=== PATIENT | female | born 1960 | race Caucasian/White ===

== ENCOUNTER 2020-12-11 06:48 | Outpatient (CLI) | payer MEDICARE ==
--- NOTE | 2020-12-11 07:41 | ULT ---
ULTRASOUND DOPPLER DUPLEX VENOUS BILATERAL LOWER EXTREMITIES: DATE: 12/11/2020 HISTORY: 60-year-old female with bilateral lower extremity edema TECHNIQUE: Grayscale, color-flow, and spectral analysis, of major veins of bilateral lower extremities. FINDINGS: There is demonstration of blood flow with normal compressibility, of the bilateral common femoral, pr ofunda femoral, greater saphenous, femoral, popliteal, and posterior tibial, veins. IMPRESSION: Negative. No deep venous thrombosis of bilateral lower extremities.
--- NOTE | 2020-12-11 08:14 | CT ---
CT BRAIN NONCONTRAST: DATE: 12/11/2020 HISTORY: 60-year-old female with headache COMPARISON: None available FINDINGS: There is no evidence of acute intra-axial or extra-axial hemorrhage. There is no midline shift or any other mass effect. There is no extra-axial fluid collection. There is no evidence of obstructive hydrocephalus. There is a [employer] shunt catheter entering through a left frontal rodney hole, traversing the frontal horn of the left lateral ventricle, possibly traversing third ventricle, with distal tip just posterior to the mamillary bodies. In the contralateral right frontal lobe, there is a track of encephalomalacia and gliosis from previously removed [employer] DESK [employer]GER shunt catheter or ventriculostomy catheter, and there is an old right upper anterior parietal bone rodney hole. Bilateral tympanomastoid cavities a nd visualized portions of paranasal sinuses appear to be grossly clear. IMPRESSION: 1. No acute intracranial findings. 2. Left-sided ventriculoperitoneal shunt catheter. 3. Evidence of previous removed contralateral right-sided FR[employer] DESK [employer]GER shunt catheter or ventriculostomy.
--- NOTE | 2020-12-11 08:34 | RAD ---
EXAM: Chest PA and lateral: HISTORY: Smoker. Annual checkup. COMPARISON: None FINDINGS: Partially visualized right-sided [employer] shunt catheter. Heart: Normal cardiac silhouette Aorta: Atherosclerosis Pulmonary vessels: Normal Costophrenic angles: Costophrenic angles are clear. Lungs: No consolidation or masses. Hyperinflation. Pneumothorax: No pneumothorax Osseous structures: No osseous abnormalities IMPRESSION: No acute cardiopulmonary process. COPD.
--- NOTE | 2020-12-11 08:41 | RAD ---
XR Hand Rt 3 View STANDARD History: Pain Comparison: None. Findings: No acute fracture or malalignment. Extensive ossification of the change of the fibrocartila ge. Accessory ossicle along the ulnar styloid process. Advanced degenerative disease of the thumb carpome tacarpal joint with dorsal subluxation along with ossification of the anterior oblique ligament. Moderate interphalangeal joint space narrowing throughout all digits. No large erosions or periostiti s. 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 No acu te fracture or malalignment.
--- NOTE | 2020-12-11 08:42 | RAD ---
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 There are hypertrophic degenerative changes with irregularity of margins at base of first metacarpal, distal pole of scaphoid, and to a lesser degree proximal aspect of the trapezoid. 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 No high-grade DJD in the rest of the joints of the wrists. Mild DJD at first MCP. Mild DJD at multipl e PIPs and DIPs. The rest of the MCPs are normal. No erosions. Osteopenia. IMPRESSION: 1.) Surgical absence of the trapezium. 2) degenerative changes of the triscaphe the region of the remaining bones
--- NOTE | 2021-01-08 13:15 | MMO ---
Bilateral MAMMO Bilat Screen [id number]. CLINICAL HISTORY: Patient is 60 years old and is seen for screening. The patient has the following family history of breast cancer: mother, at age 72. The patient has a history of brain cancer. VIEWS: The views performed were: bilateral craniocaudal with tomosynthesis and bilateral mediolateral oblique with tomosynthesis. This study has been interpreted with the assistance of computer-aided detection. MAMMOGRAM FINDINGS: There are scattered fibroglandular densities. Benign calcifications are noted bilaterally. There are no suspicious masses, suspicious calcifications, or new areas of architectural distortion. IMPRESSION: THERE IS NO MAMMOGRAPHIC EVIDENCE OF MALIGNANCY. A ROUTINE FOLLOW-UP MAMMOGRAM IN 1 YEAR IS RECOMMENDED. THE RESULTS OF THIS EXAM WERE SENT TO THE PATIENT. ACR BI-RADS Category 2 - Benign finding MAMMOGRAPHY NOTE: 1. A negative mammogram report should not delay a biopsy if a dominant of clinically suspicious mass is present. 2. Approximately 10% to 15% of breast cancers are not detected by mammography. 3. Adenosis and dense breasts may obscure an underlying neoplasm. Reported by: JOSE ALEJANDRO TAYLOR MD Electonically Signed: [id number]
== END 2020-12-11 06:49 | disposition home or self-care (01) ==
LOC: BICULT 06:48
DX: Z12.31 Encounter for screening mammogram for malignant neoplasm of breast (principal); K59.09 Other constipation; R51.9 Headache, unspecified; R60.9 Edema, unspecified; M79.609 Pain in unspecified limb; G93.2 Benign intracranial hypertension; M32.9 Systemic lupus erythematosus, unspecified; F17.200 Nicotine dependence, unspecified, uncomplicated; M19.032 Primary osteoarthritis, left wrist; M19.041 Primary osteoarthritis, right hand; M19.031 Primary osteoarthritis, right wrist; Z98.2 Presence of cerebrospinal fluid drainage device; Z98.890 Other specified postprocedural states
CPT/HCPCS: 70450; 71046; 77063; 77067; 93970

== ENCOUNTER 2020-12-12 16:53 | Emergency (ER) | payer MEDICARE ==
[2020-12-12 18:39] LABS: #Basophils 0.1 thou/uL (0.0-0.2); #Eosinphils 0.2 thou/uL (0.0-0.7); #Lymphocytes 3.8 thou/uL (1.20-3.40); #Monocytes 0.7 thou/uL (0.11-0.59); #Neutrophils 6.5 thou/uL (1.40-6.50); %Basophils 1.1 % (0.0-1.0); %Eosinophils 1.4 % (0.0-10.0); %Lymphocytes 33.9 % (21.0-51.0); %Monocytes 6.4 % (0.0-10.0); %Neutrophils 57.2 % (42.0-75.0); Hemoglobin 15.5 g/dL (12.0-16.0); Mean Corpuscular HGB CONC 32.3 g/dL (32.0-36.0); Mean Corpuscular Hemoglobin 31.9 pg (27.0-31.0); Mean Corpuscular Volume 98.7 fL (78.0-98.0); Platelet Count 290 thou/uL (130-400); RBC Distribution Width 12.4 % (11.5-14.5); Red Blood Cell (RBC) Count 4.88 mill/uL (4.20-5.40); White Blood Cell (WBC) Count 11.3 thou/uL (4.8-10.8)
--- NOTE | 2020-12-12 18:48 | RAD ---
Portable frontal chest radiograph: 12/12/2020 COMPARISON: 12/11/2020 HISTORY: Dyspnea with lower extremity swelling FINDINGS: Mild stable interstitial prominence and pulmonary hyperinflation. Heart and mediastinal con tours are stable. No pneumothorax or pleural fluid. No focal consolidation or alveolar edema. IMPRESSION: Interstitial prominence and pulmonary hyperinflation suspicious for COPD in the proper cl inical setting. No focal consolidation or alveolar edema.
[2020-12-12 19:02] LABS: ALT (SGPT) 23 U/L (8-55); AST (SGOT) 17 U/L (5-34); Albumin 4.4 g/dL (3.5-5.0); Alkaline Phosphatase 97 U/L (40-110); Anion Gap 15 mmol/L (10-20); BUN (Urea Nitrogen) 14 mg/dL (9.8-20.1); Bilirubin, Total 0.3 mg/dL (0.2-1.2); CK (CPK) 58 U/L (29-168); Calc. Creatinine Clearance 0 mL/min (70-130); Calcium 9.5 mg/dL (7.8-10.44); Carbon Dioxide 32 mmol/L (22-29); Chloride 98 mmol/L (98-107); Globulin 3.2 g/dL (2.4-3.5); Glucose 82 mg/dL (70-105); Potassium 4.7 mmol/L (3.5-5.1); Protein, Total 7.6 g/dL (6.0-8.3); Sodium 140 mmol/L (136-145)
[2020-12-12] MEDS ORDERED: Metoclopramide HCl 10 MG TAB ONE (19:55)
[2020-12-12] MEDS ORDERED: Albuterol 200 PUFF (6.7GM INHALER) ONE (19:55)
[2020-12-12] MEDS ORDERED: methylPREDNISolone Sod Succ/PF 125 MG/2 ML VIAL ONE (20:15)
[2020-12-12] MEDS ORDERED: Ketorolac Tromethamine 30 MG/ML VIAL ONE (21:05)
[2020-12-13 08:08] LABS: SARS-CoV-2 MS2 Positive; SARS-CoV-2 N Gene Negative; SARS-CoV-2 S Gene Negative; SARS-CoV-2 by NAA Not Detected (NotDetected); SARS-CoV-2 orf1ab Negative
--- NOTE | 2020-12-15 10:10 | EKG ---
Test Reason : Blood Pressure : / mmHG Vent. Rate : 079 BPM Atrial Rate : 079 BPM P-R Int : 148 ms QRS Dur : 076 ms QT Int : 376 ms P-R-T Axes : 078 056 065 degrees QTc Int : 431 ms Normal sinus rhythm Normal ECG Baseline Artifact Present Confirmed by IVANNA TURNER, MANAN Richter ([id number]), commissioning editor RHONDA VILLALBA ([id number]) on 12/15/2020 10:09:58 AM Referred By: Tyra Rasmsusen Confirmed By:MANAN GONCALVES MD
== END 2020-12-12 22:20 | disposition home or self-care (01) ==
LOC: ERS 16:53
DX: J44.1 Chronic obstructive pulmonary disease with (acute) exacerbation (principal); I10 Essential (primary) hypertension; E78.5 Hyperlipidemia, unspecified; F17.210 Nicotine dependence, cigarettes, uncomplicated; Z20.822 Contact with and (suspected) exposure to COVID-19
CPT/HCPCS: 71045; 80053; 82550; 83605; 83880; 84484; 85025; 87040; 93005; U0003; U0005; 36415; 87635; 96374; 96375; J1885; J2930

== ENCOUNTER 2020-12-18 14:13 | Emergency (ER) | payer MEDICARE ==
--- NOTE | 2020-12-18 15:58 | RAD ---
EXAM: CHEST TWO VIEWS 12/18/2020 3:54 PM HISTORY: Lower extremity edema COMPARISON: Prior exam dated December 11, 2020 and December 12, 2020 FINDINGS: Lungs: No acute airspace consolidation. Heart: Normal in size and contour. Pulmonary Vessels: Normal. Costophrenic Angles: Clear. Pneumothorax: None. Osseous Structures: There is scattered degenerative and osteoarthritic change present. Additional Findings: There is a ventriculoperitoneal catheter traversing the left aspect of the nec k and anterior left chest wall that is stable to the prior. IMPRESSION: No significant acute intrathoracic disease.
[2020-12-18 16:49] LABS: Hemoglobin 15.8 g/dL (12.0-16.0); Mean Corpuscular HGB CONC 32.8 g/dL (32.0-36.0); Mean Corpuscular Hemoglobin 31.7 pg (27.0-31.0); Mean Corpuscular Volume 96.8 fL (78.0-98.0); Mean Platelet Volume 9.5 fL (7.4-10.4); Platelet Count 241 thou/uL (130-400); RBC Distribution Width 12.5 % (11.5-14.5); Red Blood Cell (RBC) Count 4.97 mill/uL (4.20-5.40); White Blood Cell (WBC) Count 12.2 thou/uL (4.8-10.8)
[2020-12-18 17:06] LABS: ALT (SGPT) 26 U/L (8-55); AST (SGOT) 22 U/L (5-34); Albumin 4.6 g/dL (3.5-5.0); Alkaline Phosphatase 93 U/L (40-110); Anion Gap 15 mmol/L (10-20); BUN (Urea Nitrogen) 25 mg/dL (9.8-20.1); Bilirubin, Total 0.4 mg/dL (0.2-1.2); Calc. Creatinine Clearance 0 mL/min (70-130); Calcium 10.4 mg/dL (7.8-10.44); Carbon Dioxide 32 mmol/L (22-29); Chloride 94 mmol/L (98-107); Globulin 3.5 g/dL (2.4-3.5); Glucose 109 mg/dL (70-105); Lipase 29 U/L (8-78); Potassium 4.4 mmol/L (3.5-5.1); Protein, Total 8.1 g/dL (6.0-8.3); Sodium 137 mmol/L (136-145)
[2020-12-18 17:24] LABS: Band 2 % (5-11); Eosinophils 1 % (0-10); Lymphocytes 25 % (21-51); MDiff Complete? YES; Monocytes 5 % (0-10); Neutrophil 66 % (42-75); Platelet Morphology Comment Appears Adequate; RBC Morphology Normal
== END 2020-12-18 17:04 | disposition home or self-care (01) ==
LOC: ERS 14:13
DX: R60.9 Edema, unspecified (principal); R11.2 Nausea with vomiting, unspecified; Z79.899 Other long term (current) drug therapy; E78.5 Hyperlipidemia, unspecified; I10 Essential (primary) hypertension; J44.9 Chronic obstructive pulmonary disease, unspecified; F17.210 Nicotine dependence, cigarettes, uncomplicated
CPT/HCPCS: 71046; 80053; 83690; 83880; 84484; 85025

== ENCOUNTER 2021-02-01 09:26 | Outpatient (CLI) | payer MEDICARE ==
[2021-02-01 09:47] LABS: Estimated GFR-MDRD - POC Greater than 90
[2021-02-01] MEDS ORDERED: Iopamidol-370 76% 500 ML 1 ML ONE (11:51)
== END 2021-02-01 09:27 | disposition home or self-care (01) ==
LOC: BICCT 09:26
PROVIDERS: ATTEND Family Medicine
DX: R31.0 Gross hematuria (principal); N28.1 Cyst of kidney, acquired; R91.1 Solitary pulmonary nodule; K42.9 Umbilical hernia without obstruction or gangrene; D35.02 Benign neoplasm of left adrenal gland; Z98.890 Other specified postprocedural states
CPT/HCPCS: 74178; 82565; Q9967